=== PATIENT | female | born 1990 | race Hispanic/Latino ===

== ENCOUNTER 2023-02-24 23:28 | Emergency (ER) | payer OTHER ==
[~2023-02-24] VITALS: Ht 165.1 cm; Wt 117.5 kg
[~2023-02-24 23:28] MED LIST: CEPH500B PO; OSEL75 PO
[2023-02-24 23:29] VITALS: BP 131/75
[2023-02-25] LABS: APPEARANCE,URINE CLEAR (CLEAR); BILIRUBIN,URINE NEGATIVE (NEGATIVE); COLOR,URINE LIGHT-YELLOW (YELLOW); GLUCOSE, URINE (UA) NEGATIVE (NEGATIVE); KETONES,URINE NEGATIVE (NEGATIVE); LEUKOCYTE ESTERASE ,URINE 75 Leu/uL (NEGATIVE); NITRATE,URINE NEGATIVE (NEGATIVE); OCCULT BLOOD,URINE NEGATIVE (NEGATIVE); PH,URINE 6.5 (5.0-8.0); PROTEIN,URINE NEGATIVE (NEGATIVE); UROBILINOGEN,URINE 0.2 mg/dL (0.2-1.0)
[2023-02-25 00:04] LABS: BACTERIA,URINE RARE /HPF (None Seen); MUCUS,URINE RARE LPF (None Seen); SQUAMOUS EPITHELIAL CELL,UR RARE /HPF (0-2)
[2023-02-25] MEDS ORDERED: PHEN-847 PO (01:49)
[2023-02-25] MEDS ORDERED: CEFU500T67 PO (01:49)
[2023-02-25] MEDS ORDERED: CEFUROXIME AXETIL 250 MG TABLET PO SCH (02:00)
[2023-02-25] MEDS ORDERED: PHENAZOPYRIDINE HCL 200 MG TABLET PO ONE (02:00)
== END 2023-02-25 02:00 | disposition home or self-care (01) ==
LOC: EDH 23:28
DX: N39.0 Urinary tract infection, site not specified (principal)
CPT/HCPCS: 81001; 87088